=== PATIENT | male | born 1950 | race Caucasian/White ===

== ENCOUNTER 2024-06-01 20:50 | Emergency (ER) | payer MEDICARE, OTHER, SELFPAY ==
[2024-06-01 21:04] VITALS: BP 138/68
--- NOTE | 2024-06-01 22:56 | ED.GENMED ---
History of Present Illness
General
Chief Complaint: Musculo-Skeletal Complaint
Time Seen by Provider: 06/01/24 22:34
History of Present Illness
History of Present Illness:
73-year-old male presents the emergency department for evaluation of a left great toe injury, crush the toe with a pallet tootie. The nail was removed as a result of the injury. Bleeding is currently controlled.
Review of Systems
Review of Systems
Allergies reviewed?: Yes
All Other Systems: ROS reviewed and negative except as documented in HPI and ROS
Phy Exam
Physical Exam
Physical Exam:
GEN: Well appearing, NAD, WDWN
HEENT: Oral mucosa moist, no scleral icterus
Cardiac: Regular rate
Lung: No respiratory distress, no tachypnea
MSK: Complete avulsion of the left great toenail, no significant lacerations to the nailbed, no bruising or ecchymoses
Skin: Good color, no pallor or jaundice, no rashes
Neuro: AO x3, moves all extremities freely
Psych: Calm, cooperative
Course
Orders/Labs/Results
Orders:
Orders
06/01/24 21:18
Toes 2 Views, Left CR [CR Toe(s) Min 2 Vw Left] Urgent
Comment:
Reason For Exam: crush injury
06/01/24 23:00
Cephalexin Monohydrate [Keflex] 500 mg PO NOW STA
Vital Signs
Initial and Last Documented VS:
Initial Vital Signs
Temp Pulse Resp BP Pulse Ox
97.9 F 78 18 138/68 97
06/01/24 21:04 06/01/24 21:04 06/01/24 21:04 06/01/24 21:04 06/01/24 21:04
Last Documented Vital Signs
Temp Pulse Resp BP Pulse Ox
97.9 F 62 18 123/64 98
06/01/24 21:04 06/01/24 23:08 06/01/24 21:04 06/01/24 23:08 06/01/24 23:08
MDM/Problems Addressed
MDM/Problems Addressed:
Due to the small fracture seen on distal phalanx on the x-ray we will treat this as an open fracture with prophylactic antibiotics. The nail was avulsed prior to ER arrival, discussed supportive care
*Critical Care Note
Total Time (30-74mins, 75-104mins- exclusive of procedures): Not Applicable
ED Attending Note
-
Portions of this chart may have been created with voice recognition software.� Occasional wrong word or��sound alike� substitutions may have occurred due to the inherent limitations of voice recognition software.
Discharge Plan
Departure
Patient Disposition: Home (Routine Discharge)
Date of Disposition: 06/01/24
Time of Disposition: 22:57
Patient with high blood pressure during this ER visit?: No
Discharge Problem:
Nail avulsion of toe, Open fracture of phalanx of left great toe
Instructions: Toe Fracture ED
Prescriptions:
New
cephalexin 500 mg capsule
500 mg PO Q8H 5 Days Qty: 15 0RF
Referrals:
Paul De La Torre MD [Family Provider] -
Activity Restrictions/Additional Instructions:
Dressed the wound with daily with Vaseline and nonstick gauze, wash with soap and water daily
Interventions
Interventions:
*Risk Screen - Suicide Last Done: 06/01/24 21:04
*General Assessment Last Done: 06/01/24 21:04
*Neglect/Abuse Screening Last Done: 06/01/24 21:04
ED- Fall Risk Assessment Last Done: 06/01/24 22:44
*ED COVID-19 Vaccine History Last Done: 06/01/24 22:40
*Nursing Disposition Last Done: 06/01/24 23:10
ED-Musculoskeletal Assessment Last Done: 06/01/24 22:52
Discharge Date and Time
Discharge Date/Time: 06/01/24 23:10
Print Language: [id number]
[2024-06-01] MEDS: KEFLEX 500 MG PO (23:05)
[2024-06-01 23:08] VITALS: BP 123/64
== END 2024-06-01 23:10 | disposition home or self-care (01) ==
LOC: EMR 20:50
PROVIDERS: EMERGENCY PHYSICIAN Emergency Medicine; FAMILY PHYSICIAN Internal Medicine
DX: S92.425B Nondisplaced fracture of distal phalanx of left great toe, initial encounter for open fracture (principal); W23.0XXA Caught, crushed, jammed, or pinched between moving objects, initial encounter
CPT/HCPCS: 99283; 73660